=== PATIENT | female | born 1965 | race Caucasian/White ===

== ENCOUNTER 2016-09-03 15:44 | Day surgery (SDC) | payer MEDICARE, MEDICAID ==
[2016-09-03] VITALS (10 sets, daily range): BP systolic 82–116; BP diastolic 50–72; PULSE 70–86; RESP 12–29; Ht 160 cm; Wt 81.9 kg
[~2016-09-03] VITALS: Ht 160 cm; Wt 81.9 kg
[~2016-09-03 15:44] MED LIST: CEFAZOLIN 2 GM/50 ML (PMX) 50 ML IVPB ONE; LEVO75TA75; SUMA50TA11; ZOLP10TA; bystolic PO
[2016-09-03] MEDS ORDERED: SOD CHLORIDE 0.9% 1,000 ML IV SCH (17:00)
[2016-09-03] MEDS ORDERED: POVIDONE IODINE 10% 28.4 GM OINT ONE (17:25)
[2016-09-03] MEDS ORDERED: ROPIVACAINE 0.5 % 30 ML VIAL ONE ×2 (17:25→17:57)
[2016-09-03] MEDS ORDERED: MIDAZOLAM 1 MG/ML 2 ML INJ ONE (17:52)
[2016-09-03] MEDS ORDERED: PROPOFOL 20 ML ONE (17:52)
[2016-09-03] MEDS ORDERED: FENTAnyl 50 MCG/ML VIAL ONE (17:52)
--- NOTE | 2016-09-03 17:56 | HPN ---
Date/Time of Note Date/Time of Note DATE: 09/03/16 TIME: 17:55 Interval H&P Admission Note Pt. seen H&P reviewed: No system changes ORA FORDE DPM Sep 03, 2016 17:56
[2016-09-03] MEDS ORDERED: SCOPOLAMINE 1.5 MG PATCH ONE (18:02)
[2016-09-03] MEDS ORDERED: PROPOFOL 40 ML ONE (18:02)
[2016-09-03] MEDS ORDERED: LIDOCAINE 1% (MDV) 20 ML INJ ONE (18:10)
[2016-09-03] MEDS ORDERED: DEXAMETHASONE 4 MG/ML 1 ML INJ ONE (18:36)
[2016-09-03] MEDS ORDERED: ONDANSETRON 4 MG INJ ONE ×2 (18:36→19:51)
[2016-09-03] MEDS ORDERED: FAMOTIDINE 20 MG INJ ONE (18:36)
[2016-09-03] MEDS ORDERED: CEFAZOLIN 1 GM INJ ONE (18:38)
[2016-09-03] MEDS ORDERED: BUPIVACAINE 0.5%/EPI (SDV) 30 ML INJ ONE (18:52)
[2016-09-03] MEDS ORDERED: HYDROmorphONE 2 MG/ML SYG ONE (19:33)
[2016-09-03] MEDS ORDERED: MEPERIDINE 25 MG INJ ONE (19:37)
--- NOTE | 2016-09-03 19:49 | OPR ---
Date/Time of Note Date/Time of Note DATE: 09/03/16 TIME: 19:48 Operative Report Procedure Date: Sep 03, 2016 Preoperative Diagnosis Right ankle pain Osteochondral defect of the right talus Postoperative Diagnosis Right ankle pain Osteochondral defect of the right talus Operation Performed Right ankle arthroscopy with debridement and exploration Arthroscopic repair of right talus osteochondral defect Application of posterior splint Surgeon: ORA FORDE DPM Anesthesia: general Estimated Blood Loss: minimal Specimens None Complications: None Pt Condition Post Procedure: stable Disposition: PACU Indications This is a pleasant 42-year-old female patient has been suffering with chronic pain in the right ankle. She was found to have osteochondral defect of the right talus as well. Recommendation was made for right ankle arthroscopy with arthroscopic repair of osteochondral defect of the right talus. Risks and comp occasions of this type surgery was discussed with patient in great detail including but not limited to postoperative pain, postoperative infection, disability, gait disturbance, failure of surgery to correct problem, need for additional surgical procedures, need for total ankle replacement, deep venous thrombosis, limb loss and loss of life. Informed consent was obtained signed and placed in the chart. No guarantees or warranties was given to patient as to the outcome of the procedure. Operative Findings Osteochondral defect in the right talus with significant synovitis of the ankle joint. Bony exostosis also noted in the ankle joint. Procedure Description The patient was seen in the preoperative area and the recommended procedure was discussed in great detail. Recent comp occasions were discussed with patient. All patient's questions were answered. The right ankle was identified and marked. The patient was then taken to the operating room and placed on the operating table in the supine position. A timeout was called by the circulating nurse and the correct site of surgery was identified. A thigh tourniquet was applied. General anesthesia was given by anesthesiologist. The right lower extremity was scrubbed, prepped and draped in the usual aseptic manner. An Esmarch bandage was utilized to exsanguinate the right lower extremity and the thigh tourniquet was inflated to 300 mmHg pressure. Procedure #1: Right ankle arthroscopy with debridement A small incision was made on the anteromedial aspect of the right ankle using a #11 blade. A Hannah was used to dissect down into the joint. The obturator and cannula for the scope was inserted into the ankle joint. The scope was then inserted and the ankle joint was surveyed from lateral to medial. Pictures were obtained. Next, a second portal was created on the anterolateral aspect using a similar fashion. Shaver was inserted and synovitis was debrided. I found a large bony exostosis on the anterior aspect of the distal tibia. A bur was placed in and this was burred down. Next, the scope was placed from lateral to medial and the joint was inspected. Pictures were obtained. Osteochondral defect was found on the medial aspect. Shaver was inserted and the loose cartilage was removed. Next, the scope was inserted medially and subchondral picks were inserted for drilling into the subchondral bone. Once I was satisfied with the debridement and drilling, the thigh tourniquet was deflated and bleeding was noted through the drill holes. Next, all instrumentation was removed. I closed both wounds with 2-0 nylon simple suture technique. Postop injection of 0.5% Marcaine with epi was given. Sterile dressing was applied. A posterior splint was applied to the right lower extremity. The patient tolerated procedure and anesthesia well. She was transferred to the recovery room with vital signs stable and vascular status intact to the right lower extremity. The patient will be sent home after postoperative monitoring. Nonweightbearing on the right lower extremity is ordered. Prescription was sent electronically to the pharmacy. Patient will be followed up in my office in 1 week. Remain off of work at this time. ORA FORDE DPM Sep 03, 2016 19:49
[2016-09-03] MEDS ORDERED: HYDROmorphONE (0.2 MG/ML) 10ML SYG IV ONE (19:50)
[2016-09-03] MEDS ORDERED: ONDANSETRON 4 MG INJ IV PRN (20:00)
[2016-09-03] MEDS ORDERED: HYDROmorphONE (0.2 MG/ML) 10ML SYG IV PRN ×2 (20:00)
[2016-09-03] MEDS ORDERED: MEPERIDINE 25 MG INJ IV ONE (20:00)
[2016-09-03] MEDS ORDERED: hydrALAzine 20 MG INJ IV PRN (20:00)
[2016-09-03] MEDS ORDERED: MEPERIDINE 25 MG INJ IV PRN (20:00)
--- NOTE | 2016-09-03 22:41 | RADRPT ---
PROCEDURE: XR Right Ankle. CLINICAL INDICATION: Right ankle pain. Postop. TECHNIQUE: 3 views. Frontal, lateral, and oblique. COMPARISON: None. FINDINGS: Bone detail is obscured by the overlying cast. There is no obvious fracture or dislocation. Articular surfaces are intact. There is no lytic or blastic lesion. There is no other radiopaque foreign body. IMPRESSION: 1. Bone detail obscured by the overlying cast. 2. No obvious fracture or dislocation. 3. Otherwise unremarkable study. RPTAT: QQ .Steve Castro MD, MD Date Time Electronically viewed and signed by .Steve Castro MD, on 09/03/2016 22:41 .R/
== END 2016-09-03 21:00 | disposition home or self-care (01) ==
LOC: SDS 15:44
PROVIDERS: ATTEND Podiatrist Foot & Ankle Surgery
DX: M93.271 Osteochondritis dissecans, right ankle and joints of right foot (principal); I10 Essential (primary) hypertension; E03.9 Hypothyroidism, unspecified
CPT/HCPCS: 29892; 73610; 84703; J0690; J1100; J1170; J2175; J2250; J2405; J2795; J3010